=== PATIENT | male | born 2000 | race African-American/Black ===

== ENCOUNTER 2019-09-02 01:04 | Emergency (ER) | payer OTHER ==
[~2019-09-02] VITALS: Ht 190.5 cm; Wt 104.5 kg
[2019-09-02 01:05] VITALS: BP 133/85
--- NOTE | 2019-09-02 01:42 | REP ---
Clinical: Trauma. Technique: AP, lateral, bilateral oblique and sunrise views right knee . Findings: The osseous structures and joint spaces are intact and normal. There is no evidence for acute fracture or dislocation. No joint effusion is appreciated. Surrounding soft tissues are unremarkable. No subcutaneous emphysema or radiodense foreign body. Impression: Normal examination. No acute fracture or dislocation. Electronically Signed by Gaetano Young MD 09/02/2019 01:33 A
[2019-09-02] MEDS ORDERED: LIDOCAINE 4% CREAM 5GM (LMX4) TOP ONE (01:45)
[2019-09-02] MEDS ORDERED: IBUPROFEN 600MG TAB PO ONE (01:45)
[2019-09-02] MEDS ORDERED: IBUP-1022 PO (01:52)
[2019-09-02] MEDS ORDERED: LIDO3CRE14 TOP (01:52)
== END 2019-09-02 01:58 | disposition home or self-care (01) ==
LOC: M ED 01:04
DX: S89.91XA Unspecified injury of right lower leg, initial encounter (principal); Y93.67 Activity, basketball; W22.09XA Striking against other stationary object, initial encounter; Y92.9 Unspecified place or not applicable

== ENCOUNTER 2019-11-17 00:08 | Emergency (ER) | payer OTHER ==
[~2019-11-17] VITALS: Ht 185.4 cm; Wt 104.5 kg
[~2019-11-17 00:08] MED LIST: IBUP-1022 PO; LIDO3CRE14 TOP
== END 2019-11-17 00:56 | disposition left against medical advice (07) ==
LOC: M ED 00:08
DX: Z53.21 Procedure and treatment not carried out due to patient leaving prior to being seen by health care provider (principal)

== ENCOUNTER 2020-01-04 22:47 | Emergency (ER) | payer OTHER ==
[~2020-01-04] VITALS: Ht 190.5 cm; Wt 116.0 kg
[2020-01-04 22:48] VITALS: BP 129/67
--- NOTE | 2020-01-04 23:37 | REPVR ---
PROCEDURE INFORMATION: Exam: XR Left Ankle Exam date and time: 01/04/2020 11:12 PM Age: 19 years old Clinical indication: Other: Pain TECHNIQUE: Imaging protocol: XR Left ankle. Views: 3 or more views. COMPARISON: No relevant prior studies available. FINDINGS: Bones/joints: Normal. Soft tissues: Normal. IMPRESSION: Negative left ankle. Electronically signed by: Terry Eastman On 01/04/2020 23:37:14 PM
== END 2020-01-05 02:50 | disposition left against medical advice (07) ==
LOC: M ED 22:47
DX: Z53.21 Procedure and treatment not carried out due to patient leaving prior to being seen by health care provider (principal)

== ENCOUNTER → 2020-03-10 | Outpatient (REF) | payer OTHER | LOC: M WUC 17:57 | PROVIDERS: ATTEND Physician Assistant | DX: J02.9 Acute pharyngitis, unspecified (principal) ==

== ENCOUNTER 2020-05-27 22:01 | Emergency (ER) | payer OTHER ==
[~2020-05-27] VITALS: Ht 190.5 cm; Wt 117.0 kg
--- NOTE | 2020-05-27 23:02 | REPVR ---
PROCEDURE INFORMATION: Exam: XR Right Wrist Exam date and time: 05/27/2020 10:47 PM Age: 20 years old Clinical indication: Other: Pain with rom after injury TECHNIQUE: Imaging protocol: XR Right wrist. Views: 3 or more views. COMPARISON: No relevant prior studies available. FINDINGS: Bones/joints: Normal. No fracture. Soft tissues: Normal. IMPRESSION: Negative right wrist. Electronically signed by: Terry Eastman On 05/27/2020 23:02:42 PM
[2020-05-27] MEDS ORDERED: NAPR-837 PO (23:12)
[2020-05-27] MEDS ORDERED: NAPROXEN 250 MG TAB PO ONE (23:15)
[2020-05-27 23:46] VITALS: BP 128/67
== END 2020-05-27 23:47 | disposition home or self-care (01) ==
LOC: M ED 22:01
DX: S63.91XA Sprain of unspecified part of right wrist and hand, initial encounter (principal); W22.8XXA Striking against or struck by other objects, initial encounter; Y92.018 Other place in single-family (private) house as the place of occurrence of the external cause; F17.210 Nicotine dependence, cigarettes, uncomplicated